=== PATIENT | male | born 1940 | race Caucasian/White ===

== ENCOUNTER → 2017-08-28 | Outpatient (CLI) | payer MEDICARE | END | disposition home or self-care (01) | LOC: CFH 14:27 | PROVIDERS: ATTEND Family Medicine | DX: M75.120 Complete rotator cuff tear or rupture of unspecified shoulder, not specified as traumatic (principal); M75.21 Bicipital tendinitis, right shoulder; M19.011 Primary osteoarthritis, right shoulder | CPT/HCPCS: 70250 ==

== ENCOUNTER 2019-04-19 03:21 | Emergency (ER) | payer MEDICARE ==
[~2019-04-19] VITALS: Ht 177.8 cm; Wt 90.4 kg
[2019-04-19 03:23] VITALS: BP 167/73
== END 2019-04-19 04:46 | disposition home or self-care (01) ==
LOC: ED 04:20
DX: N40.1 Benign prostatic hyperplasia with lower urinary tract symptoms (principal); R33.8 Other retention of urine; E11.9 Type 2 diabetes mellitus without complications; I10 Essential (primary) hypertension; E78.00 Pure hypercholesterolemia, unspecified; K21.9 Gastro-esophageal reflux disease without esophagitis; Z87.891 Personal history of nicotine dependence
CPT/HCPCS: 51702; 99284

== ENCOUNTER 2021-03-17 08:02 | Emergency (ER) | payer MEDICARE ==
[~2021-03-17] VITALS: Ht 177.8 cm; Wt 87.6 kg
--- NOTE | 2021-03-17 09:04 | NUR ---
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
--- NOTE | 2021-03-17 09:13 | NUR ---
ERMD AT BEDSIDE FOR EVALUATION.
--- NOTE | 2021-03-17 09:18 | NUR ---
PATIENT WALKED BACK FROM TRIAGE WITH CHIEF C/O URINARY RETENTION. PER PATIENT HE WOKE UP THIS MORNING AROUND 5:45 AND WAS UNABLE TO URINATE. ERMD DID BLADDER ULTRASOUND, BLADDER IS DISTENDED. PATIENT DENIES ABD PAIN OR FEVERS. NADN, CONNECTED TO MONITOR, VSS, CALL LIGHT WITHIN REACH.
--- NOTE | 2021-03-17 09:41 | NUR ---
[employer] CATHETER INSERTED PER ERMD ORDER, PATIENT TOLERATED WELL, URINE COLLECTED AND SENT TO LAB.
[2021-03-17 09:50] LABS: MICROSCOPIC NOT IND
[2021-03-17 10:25] VITALS: BP 129/54
[2021-03-17] MEDS ORDERED: TAMS-11 PO (10:32)
[2021-03-17] MEDS ORDERED: HYDR25TA6 PO (10:32)
[2021-03-17] MEDS ORDERED: OXYB5TAB10 PO (10:32)
[2021-03-17] MEDS ORDERED: LISI-167 PO (10:32)
[2021-03-17] MEDS ORDERED: AMLO-150 PO (10:32)
[2021-03-17] MEDS ORDERED: GLUC1CAP40 PO (10:32)
[2021-03-17] MEDS ORDERED: SITA100T PO (10:32)
[2021-03-17] MEDS ORDERED: OMEP-110 PO (10:32)
[2021-03-17] MEDS ORDERED: NIAC500T9 PO (10:32)
[2021-03-17] MEDS ORDERED: GLIM1TAB7 PO (10:32)
[2021-03-17] MEDS ORDERED: ATOR20TA37 PO (10:32)
[2021-03-17] MEDS ORDERED: ALLO300T PO (10:32)
--- NOTE | 2021-03-17 10:40 | NUR ---
ERMD AT BEDSIDE TO DISCUSS POC.
--- NOTE | 2021-03-17 11:31 | NUR ---
Patient given urinary cath supplies/discharge instructions and they have confirmed that they understand the instructions. Patient ambulatory with steady gait. NAD, all questions answered appropriately, denies additional needs at this time. No personal belongings left in room after discharge.
== END 2021-03-17 11:33 | disposition home or self-care (01) ==
LOC: ED 10:22 → EDIP 11:06 → UNDOADMIN 11:06 → ED 11:33
DX: N40.1 Benign prostatic hyperplasia with lower urinary tract symptoms (principal); R33.8 Other retention of urine; I10 Essential (primary) hypertension; K21.9 Gastro-esophageal reflux disease without esophagitis; E11.9 Type 2 diabetes mellitus without complications; E78.00 Pure hypercholesterolemia, unspecified; Z87.891 Personal history of nicotine dependence
CPT/HCPCS: 51702; 81003; 99284